=== PATIENT | male | born 1955 | race Caucasian/White ===

== ENCOUNTER 2017-08-01 13:33 | Emergency (ER) | payer OTHER ==
[~2017-08-01] VITALS: Ht 170.2 cm; Wt 90.9 kg
[2017-08-01] MEDS ORDERED: ALBUTEROL 0.5% (NEB) 2.5 MG/0.5 ML AMP INH STA ×2 (13:55→15:23)
[2017-08-01] MEDS ORDERED: METHYLPREDNISOLONE 125 MG INJ IV STA (13:55)
[2017-08-01] MEDS ORDERED: SOD CHLORIDE 0.9% 1,000 ML IV STA (13:55)
[2017-08-01] MEDS ORDERED: IPRATROPIUM (NEB) 0.5 MG/2.5 ML AMP INH STA (13:55)
[2017-08-01 14:01] VITALS: Ht 170.2 cm; Wt 90.9 kg
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
[2017-08-01 14:37] LABS: ABNORMAL IP MESSAGE 1; BASOPHILS % 0.9 % (0.0-2.0); EOSINOPHILS # 0.1 10^3/ul (0.0-0.5); EOSINOPHILS % 1.4 % (0.0-7.0); HEMATOCRIT 46.9 % (42.0-52.0); LYMPHOCYTES # 0.3 10^3/ul (0.8-2.9); MEAN CORPUSCULAR HEMOGLOBIN 29.5 pg (29.0-33.0); MEAN CORPUSCULAR HGB CONC 34.1 g/dl (32.0-37.0); MEAN CORPUSCULAR VOLUME 86.4 fl (82.0-101.0); MEAN PLATELET VOLUME 8.8 fl (7.4-10.4); MONOCYTE # 0.5 10^3/ul (0.3-0.9); NEUTROPHIL # 3.4 10^3/ul (1.6-7.5); NEUTROPHILS % 79.5 % (39.0-77.0); PLATELET COUNT 93 10^3/UL (140-415); POSITIVE DIFF @See below; RED BLOOD COUNT 5.43 10^6/ul (4.70-6.10); RED CELL DISTRIBUTION WIDTH 14.9 % (11.5-14.5); WHITE BLOOD COUNT 4.3 10^3/ul (4.8-10.8)
[2017-08-01 15:10] LABS: TROPONIN-I < 0.012 ng/ml (0.00-0.12)
[2017-08-01 15:11] LABS: ALANINE AMINOTRANSFERASE 57 IU/L (13-69); ALBUMIN 3.4 g/dl (3.3-4.9); ALBUMIN/GLOBULIN RATIO 0.75; ALKALINE PHOSPHATASE 193 IU/L (42-121); ANION GAP 11 (8-16); ASPARTATE AMINO TRANSFERASE 77 IU/L (15-46); BILIRUBIN,INDIRECT 2.6 mg/dl (0-1.1); BILIRUBIN,TOTAL 2.6 mg/dl (0.2-1.3); BLOOD UREA NITROGEN 9 mg/dl (7-20); CARBON DIOXIDE 26 mmol/L (21-31); CHLORIDE 107 mmol/L (97-110); CREATININE 1.05 mg/dl (0.61-1.24); GLUCOSE 96 mg/dl (70-220); POTASSIUM 4.7 mmol/L (3.5-5.1); SODIUM 139 mmol/L (135-144); TOTAL PROTEIN 7.9 g/dl (6.1-8.1)
--- NOTE | 2017-08-01 15:49 | RADRPT ---
PROCEDURE: XR Chest. CLINICAL INDICATION: Asthma exacerbation TECHNIQUE: A single AP view of the chest was obtained. COMPARISON: None. FINDINGS: No focal airspace opacification, pleural effusion or pneumothorax is seen. The cardiomediastinal si lhouette is within normal limits for size. The osseous structures are unremarkable. IMPRESSION: Unremarkable chest x-ray. RPTAT: HH .Eden Del Toro MD, MD Date Time Electronically viewed and signed by .Eden Del Toro MD, on 08/01/2017 15:48 .G/
[2017-08-01] MEDS ORDERED: MAGNESIUM SULFATE 1 GM/D5W 100 ML IVPB ONE (16:30)
[2017-08-01] MEDS ORDERED: ALBU18HF INHALATION ×2 (17:20→17:21)
[2017-08-01] MEDS ORDERED: MONT10TA24 PO (17:21)
[2017-08-01] MEDS ORDERED: LORA1TAB PO (17:22)
[2017-08-01] MEDS ORDERED: ATOR40TA68 PO (17:22)
[2017-08-01] MEDS ORDERED: COR40 PO (17:45)
[2017-08-01 17:50] VITALS: BP 142/78; PULSE 99; RESP 24; TEMP 98.9
== END 2017-08-01 18:10 | disposition short-term general hospital (02) ==
LOC: E/R 13:33
DX: J45.42 Moderate persistent asthma with status asthmaticus (principal); D69.6 Thrombocytopenia, unspecified; I10 Essential (primary) hypertension; Z87.891 Personal history of nicotine dependence
CPT/HCPCS: 71010; 80053; 83690; 84484; 85025; 87400; 94640; 94644; 94645; 96374; 96375; 99291; J2930; J3475; J7030; 93005

== ENCOUNTER 2017-08-15 15:59 | Emergency (ER) | payer OTHER ==
[~2017-08-15] VITALS: Wt 90.0 kg
[~2017-08-15 15:59] MED LIST: ALBU18HF INHALATION; ATOR40TA68 PO; LORA1TAB PO; MONT10TA24 PO; NADO40TA31 PO
[2017-08-15] MEDS ORDERED: SUCCINYLCHOLINE CHLORIDE 100 MG/5 ML SYG IV ONE (16:00)
[2017-08-15] MEDS ORDERED: ETOMIDATE 20 MG INJ ONE (16:00)
[2017-08-15] MEDS ORDERED: ALBUTEROL 0.083% (NEB) 2.5 MG/3 ML AMP NEB STA (16:34)
[2017-08-15] MEDS ORDERED: IPRATROPIUM (NEB) 0.5 MG/2.5 ML AMP NEB STA (16:34)
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
[2017-08-15] MEDS ORDERED: LEVETIRACETAM 1000 MG (PMX) 100 ML IVPB STA (17:25)
[2017-08-15 17:36] LABS: ABNORMAL IP MESSAGE 1; BASOPHIL # 0.1 10^3/ul (0.0-0.1); BASOPHILS % 0.3 % (0.0-2.0); HEMATOCRIT 50.7 % (42.0-52.0); HEMOGLOBIN 17.2 g/dl (14.0-18.0); LYMPHOCYTES # 0.8 10^3/ul (0.8-2.9); LYMPHOCYTES % 3.2 % (15.0-51.0); MEAN CORPUSCULAR HGB CONC 33.9 g/dl (32.0-37.0); MEAN CORPUSCULAR VOLUME 88.5 fl (82.0-101.0); MEAN PLATELET VOLUME 10.4 fl (7.4-10.4); MONOCYTE # 2.4 10^3/ul (0.3-0.9); NEUTROPHIL # 20.4 10^3/ul (1.6-7.5); NEUTROPHILS % 85.4 % (39.0-77.0); PLATELET COUNT 122 10^3/UL (140-415); POSITIVE DIFF @See below; RED BLOOD COUNT 5.73 10^6/ul (4.70-6.10); RED CELL DISTRIBUTION WIDTH 16.2 % (11.5-14.5); WHITE BLOOD COUNT 23.9 10^3/ul (4.8-10.8)
[2017-08-15 17:38] LABS: ADD UMIC YES; UR ASCORBIC ACID NEGATIVE (NEGATIVE); UR BACTERIA FEW /HPF (NONE SEEN); UR BILIRUBIN (Dip) NEGATIVE (NEGATIVE); UR BLOOD (Dip) 3+ mg/dL (NEGATIVE); UR CLARITY SLIGHTLY CLOUDY (CLEAR); UR COLOR AMBER (YELLOW); UR GLUCOSE (Dip) NEGATIVE (NEGATIVE); UR KETONES (Dip) NEGATIVE (NEGATIVE); UR LEUKOCYTE ESTERASE (Dip) NEGATIVE Leu/ul (NEGATIVE); UR MUCUS FEW /HPF (NONE SEEN); UR NITRITE (Dip) NEGATIVE (NEGATIVE); UR NONSQUAMOUS EPITHELIAL CELL 1 /HPF (NONE SEEN); UR RBC > 182 /HPF (0-5); UR SPECIFIC GRAVITY (Dip) 1.024 (1.003-1.030); UR TOTAL PROTEIN (Dip) 2+ mg/dl (NEGATIVE); UR UROBILINOGEN (Dip) 2+ mg/dL (NEGATIVE)
[2017-08-15] MEDS ORDERED: MIDAZOLAM (DRIP) 50 mg/50 mL 50 ML IV STA (17:52)
--- NOTE | 2017-08-15 17:52 | RADRPT ---
PROCEDURE: CT head without intravenous contrast CLINICAL INDICATION: Altered mental status. COMPARISON: None relevant listed. TECHNIQUE: Axial CT images from skull base to vertex with coronal and sagittal reformats. DOSE: The estimated administered radiation dose was CTDI vol = 44.33 mGy. DLP = 720.23 mGy-cm. One or more of the following dose reduction techniques were used: automated exposure control, adjustment of the mA and/or kV according to patient size, or use of iterative reconstruction. DICOM images are available. FINDINGS: Parenchyma: Acute intracerebral hemorrhage with epicenter in the right basal ganglia extending into the centrum semi [place], santos radiata and subcortical right posterior frontal and parietal lobes. Hematoma measures 7.2 x 5.7 x 3.8 cm in AP, transverse, and craniocaudal dimensions respectively. Ex tensive surrounding cytotoxic edema. Intraventricular extension into the lateral, third, fourth vent ricles with trapped temporal horn of the left lateral ventricle and early hydrocephalus. A 0.4 cm an terior interhemispheric subdural hematoma is present on coronal image 51. Subarachnoid hemorrhage is noted within the right sylvian fissure and upper convexity right frontal lobe. Subarachnoid blood i s also present within the anterior cingulate sulcus. Associated right to left subfalcine shift measu ring 8.5 mm. Loss of the basil cisterns. Compression of the right cerebral peduncle by the medial te mporal lobe. Asymmetric enlargement of the right and aorta of the quadrigeminal cistern. Ventricles: Large amounts of interventricular hemorrhage . Early hydrocephalus with trapped left tem poral horn lateral ventricle. Extra-axial spaces: 8.5 mm right to left subfalcine shift. Paranasal sinuses: Clear. Mastoids and middle ears: Clear. Visualized orbits: Normal. Vessels: No calcified atherosclerotic arterial plaque identified. Bones: Normal. Extracranial soft tissues: Normal. Additional comment: None. IMPRESSION: 1. Acute intraparenchymal hematoma measuring 7.2 x 5.7 x 3.8 cm centered within the right basal gang dorothy extending cephalad to the subcortical right parietal and posterior frontal lobes. Extensive surr ounding sided cytotoxic edema with associated 8.5 mm right to left subfalcine shift. 2. Intraventricular extension of blood with trap left temporal horn lateral ventricle with early ob structive hydrocephalus. 3. Anterior interhemispheric subdural hematoma measuring 0.4 cm. 4. Subarachnoid hemorrhage within the right sylvian fissure, the upper convexity right frontal lobe , and the anterior cingulate sulcus. 5. Compression of the right cerebral peduncle by the medial temporal lobe. 6. Asymmetrically enlargement of the right ambient horn of the quadrigeminal cistern. Clinical results: Results of this examination called by this radiologist to Dr. Castillo at 05:50 p.m. on 08/15/2017. RPTAT: [facility] Physician Delia Date Time Electronically viewed and signed by Velma Vyas Physician on 08/15/2017 17:50 RR/
--- NOTE | 2017-08-15 17:52 | RADRPT ---
PROCEDURE: Chest x-ray CLINICAL INDICATION: Altered mental status TECHNIQUE: Chest single view COMPARISON: 08/01/2017 FINDINGS: The heart is normal in size. The pulmonary vessels are normal in caliber. Large left lower lobe pn eum[place]. Right lung is clear. Costophrenic angles are sharp. Bony thorax is unremarkable. IMPRESSION: New left lower lobe pneumonia RPTAT: HH .Franc Munoz MD, MD Date Time Electronically viewed and signed by .Franc Munoz MD, on 08/15/2017 16:55 .W/
[2017-08-15 17:57] LABS: INR 1.46; PT RATIO 1.4
[2017-08-15 17:58] LABS: PARTIAL THROMBOPLASTIN TIME 24.1 Sec (25.0-35.0)
[2017-08-15] MEDS ORDERED: CEFTRIAXONE 1 GM/50 ML (PMX) 50 ML IVPB ONE (18:00)
[2017-08-15] MEDS ORDERED: PIPER-TAZO 3.375 GM IV (PMX) 50 ML IV ONE (18:00)
[2017-08-15 18:03] LABS: ALANINE AMINOTRANSFERASE 81 IU/L (13-69); ALBUMIN 2.8 g/dl (3.3-4.9); ALBUMIN/GLOBULIN RATIO 0.57; ALKALINE PHOSPHATASE 138 IU/L (42-121); ANION GAP 15 (8-16); ASPARTATE AMINO TRANSFERASE 109 IU/L (15-46); BILIRUBIN,INDIRECT 4.6 mg/dl (0-1.1); BILIRUBIN,TOTAL 4.6 mg/dl (0.2-1.3); BLOOD UREA NITROGEN 27 mg/dl (7-20); CALCIUM 8.2 mg/dl (8.4-10.2); CARBON DIOXIDE 24 mmol/L (21-31); CHLORIDE 104 mmol/L (97-110); CREATINE KINASE 631 IU/L (23-200); CREATININE 0.95 mg/dl (0.61-1.24); GLUCOSE 135 mg/dl (70-220); POTASSIUM 4.9 mmol/L (3.5-5.1); SODIUM 138 mmol/L (135-144); TOTAL PROTEIN 7.7 g/dl (6.1-8.1)
[2017-08-15 18:08] LABS: ACETAMINOPHEN < 10.0 ug/ml (10.0-30.0); ETHANOL < 10.0 mg/dl; SALICYLATE < 1.0 mg/dl (5.0-30.0)
[2017-08-15 18:26] LABS: CK-MB 2.23 ng/ml (0.0-2.4); TROPONIN-I 0.143 ng/ml (0.00-0.12)
[2017-08-15] MEDS ORDERED: MANNITOL 25% 50 ML INJ IV* ONE (18:30)
[2017-08-15 20:08] VITALS: BP 117/69; PULSE 88; RESP 18
[2017-08-15 20:10] VITALS: TEMP 100
[2017-08-16 08:19] LABS: AADO2 Arterial 277.6 mmHg (7.0-24.0); Allen Test ACCEPTAB; Arterial Base Excess -1.6 mmol/L (-3.0-3); Arterial COHb 0.3 % (0.0-3.0); Arterial Fraction of Oxyhgb 98.8 % (93.0-99.0); Arterial MetHb 0.4 % (0.0-1.5); Arterial Total Hemglobin 14.9 g/dl (12.0-18.0); MODE VENT - AC
== END 2017-08-15 20:35 | disposition short-term general hospital (02) ==
LOC: E/R 15:59
DX: S06.349A Traumatic hemorrhage of right cerebrum with loss of consciousness of unspecified duration, initial encounter (principal); J69.0 Pneumonitis due to inhalation of food and vomit; R65.21 Severe sepsis with septic shock; A41.9 Sepsis, unspecified organism; I10 Essential (primary) hypertension; X58.XXXA Exposure to other specified factors, initial encounter; Y92.9 Unspecified place or not applicable
CPT/HCPCS: 31500; 36415; 36600; 70450; 71010; 80053; 80306; 81001; 82550; 82553; 82803; 83605; 84484; 85025; 85610; 85730; 87086; 87400; 94002; 94664; 96374; 96375; 99291; J0696; J1953; J2150; J2543; 93005